=== PATIENT | male | born 1985 | race Hispanic/Latino ===

== ENCOUNTER 2017-04-02 13:36 | Emergency (ER) | payer SELFPAY ==
[~2017-04-02] VITALS: Ht 165.1 cm; Wt 55.0 kg
[~2017-04-02 13:36] MED LIST: AMOXICILLIN500 MG OR; BACTRIM DS1 TAB PO; BACTROBAN2 % EX; BENADRYL25 MG OR; CEPHALEXIN500 MG OR; COMPLERA PO; DELTASONE20 MG PO; DIFLUCAN100 MG PO; LORTAB 5 OR; LORTAB 7.5 OR; LORTAB 7.57.5 MG/TAB OR; LORTAB5 OR; MEDDOSEPAK OR; NAPROSYN500 MG OR; NO CURRENT MEDS; NO HOME MEDS; PENICILLN VK500 M1 OR; PENICILLN VK500 MG OR; PERCOCET 5/325M1 TAB OR; TORADOL PO; ULTRAM50 M1 PO; ZOFRAN ODT4 MG OR; [UNRECOGNIZED DRUG - REMARK]
[2017-04-02] MEDS ORDERED: DOXYCYC MONO100 M2 PO (14:11)
[2017-04-02 14:38] VITALS: BP 143/88
== END 2017-04-02 14:50 | disposition home or self-care (01) | DRG 395 ==
LOC: ED 13:36
PROC: 0D9P3ZZ Drainage of Rectum, Percutaneous Approach (ICD-10-PCS; principal; 2017-04-02)
DX: K64.5 Perianal venous thrombosis (principal); Z21 Asymptomatic human immunodeficiency virus [HIV] infection status

== ENCOUNTER 2022-03-10 21:12 | Emergency (ER) | payer BC ==
[~2022-03-10] VITALS: Ht 165.1 cm; Wt 52.0 kg
[2022-03-10] VITALS (8 sets, daily range): BP systolic 110–157; BP diastolic 73–102
[~2022-03-10 21:12] MED LIST changes: +DOXYCYC MONO100 M2 PO
[2022-03-10] MEDS ORDERED: SYMTUZA 800-1501 TAB (22:07)
[2022-03-10 22:37] LABS: HEMATOCRIT 47.9 % (39.0-50.0); HEMOGLOBIN 16.9 g/dl (14.0-18.0); IMMATURE GRANULOCYTES 0.1 % (0.0-5.0); MEAN CELL VOLUME 94.1 fL CALC (80.0-100.0); MEAN CORPUSCULAR HGB 33.2 pG CALC (26.0-32.0); MEAN CORPUSCULAR HGB CONC 35.3 g/dL CAL (32.0-36.0); NEUT# 4.56 thou/uL (1.82-7.42); RED BLOOD COUNT 5.09 mill/uL (4.70-6.10); RED CELL DISTRI WIDTH 12.1 % (11.5-15.5)
[2022-03-10 22:39] LABS: URINE BILIRUBIN - DIPSTICK NEGATIVE (NEGATIVE); URINE BLOOD DIPSTICK NEGATIVE (NEGATIVE); URINE COLOR YELLOW; URINE GLUCOSE - DIPSTICK NEGATIVE (NEGATIVE); URINE KETONE NEGATIVE (NEGATIVE); URINE LEUK ESTERASE NEGATIVE (NEGATIVE); URINE PROTEIN - DIPSTICK NEGATIVE (NEG-TRACE); URINE SPECIFIC GRAVITY 1.015; URINE UROBILINOGEN - DIPSTICK 0.2 E.U./dL (0.2)
[2022-03-10 22:40] LABS: URINE NITRITE - DIPSTICK NEGATIVE (Negative)
[2022-03-10 22:51] LABS: ALBUMIN 4.8 g/dL (3.2-5.0); ALKALINE PHOSPHATASE 85 u/l (38-126); AMYLASE 93 u/l (30-110); BUN 5 mg/dL (9-20); BUN/CREATININE RATIO 7 (12-20 (CALC)); CHLORIDE 105 mmol/l (95-108); CREATININE 0.7 mg/dL (0.7-1.3); GFR FOR AFR.AMER. > 60 ML/MIN (>=60 (CALC)); GFR OTHER RACES > 60 ML/MIN (>=60 (CALC)); LIPASE 158 u/l (23-300); POTASSIUM 3.9 mmol/l (3.5-5.1); SGOT/AST 93 u/l (17-59); SODIUM 141 mmol/l (137-146); TOTAL PROTEIN 9.6 g/dL (6.3-8.2)
[2022-03-10 23:01] LABS: ANION GAP 17 (6-22 (CALC)); BILIRUBIN, TOTAL 0.9 mg/dL (0.0-1.4); CARBON DIOXIDE 23 mmol/l (22-30)
[2022-03-11] VITALS: BP 110/78
[2022-03-11] MEDS ORDERED: PROMETHAZINE HY25 M1 PO (00:11)
[2022-03-11] MEDS ORDERED: DICYCLOMINE10 MG PO (00:11)
[2022-03-11 00:15] VITALS: BP 104/68
[2022-03-11 00:30] VITALS: BP 108/72
[2022-03-11 00:45] VITALS: BP 126/84
[2022-03-11 00:48] VITALS: BP 126/84
== END 2022-03-11 00:59 | disposition home or self-care (01) | DRG 392 ==
LOC: ED 21:12
PROVIDERS: Family Medicine
DX: R10.9 Unspecified abdominal pain (principal); Z20.822 Contact with and (suspected) exposure to COVID-19; Z21 Asymptomatic human immunodeficiency virus [HIV] infection status
CPT/HCPCS: Q9967

== ENCOUNTER 2022-06-27 20:13 | Emergency (ER) | payer BC ==
[2022-06-27] VITALS (11 sets, daily range): BP systolic 87–126; BP diastolic 55–64
[~2022-06-27] VITALS: Ht 165.1 cm; Wt 43.8 kg
[~2022-06-27 20:13] MED LIST changes: +DICYCLOMINE10 MG PO; +PROMETHAZINE HY25 M1 PO; +SYMTUZA 800-1501 TAB
[2022-06-27 20:57] LABS: BASO% 0.3 % (0-3); EOS% 0.1 % (0-8); IMMATURE GRANULOCYTES 0.3 % (0.0-5.0); LYMPH% 5.3 % (15-41); MEAN CORPUSCULAR HGB 31.1 pG CALC (26.0-32.0); MEAN CORPUSCULAR HGB CONC 34.6 g/dL CAL (32.0-36.0); MONO% 11.6 % (2-13); NEUT# 9.76 thou/uL (1.82-7.42); NEUT% 82.4 % (42-76); RED BLOOD COUNT 3.89 mill/uL (4.70-6.10); RED CELL DISTRI WIDTH 11.7 % (11.5-15.5)
[2022-06-27 20:58] LABS: HEMOGLOBIN 12.1 g/dl (14.0-18.0)
[2022-06-27 21:06] LABS: ALBUMIN 3.8 g/dL (3.2-5.0); ALKALINE PHOSPHATASE 94 u/l (38-126); ANION GAP 15 (6-22 (CALC)); BILIRUBIN, TOTAL 1.3 mg/dL (0.2-1.3); BUN 8 mg/dL (9-20); BUN/CREATININE RATIO 10 (12-20 (CALC)); CARBON DIOXIDE 23 mmol/l (22-30); CHLORIDE 97 mmol/l (95-108); CREATININE 0.8 mg/dL (0.7-1.3); GFR FOR AFR.AMER. > 60 ML/MIN (>=60 (CALC)); GFR OTHER RACES > 60 ML/MIN (>=60 (CALC)); LIPASE 586 u/l (23-300); POTASSIUM 3.1 mmol/l (3.5-5.1); SGOT/AST 59 u/l (17-59); SODIUM 132 mmol/l (137-146); TOTAL PROTEIN 7.6 g/dL (6.3-8.2)
[2022-06-27 22:23] LABS: URINE BILIRUBIN - DIPSTICK NEGATIVE (NEGATIVE); URINE BLOOD DIPSTICK TRACE-INTACT (NEGATIVE); URINE COLOR YELLOW; URINE GLUCOSE - DIPSTICK NEGATIVE (NEGATIVE); URINE KETONE NEGATIVE (NEGATIVE); URINE LEUK ESTERASE MODERATE (NEGATIVE); URINE NITRITE - DIPSTICK NEGATIVE (Negative); URINE PH 6.5 (4.5-8.0); URINE PROTEIN - DIPSTICK NEGATIVE (NEG-TRACE); URINE SPECIFIC GRAVITY <=1.005
[2022-06-27 22:37] LABS: URINE RBC 0-2 RBC/hpf (0-5); URINE WBC 50-100 WBC/hpf (0-5)
[2022-06-27 22:38] LABS: URINE BACTERIA FEW hpf; URINE SQUAMOUS EPITHELIAL CELL FEW EPI/hpf (0-FEW)
[2022-06-27] MEDS ORDERED: CITRATE OF MEGNESIA PO (22:48)
[2022-06-27] MEDS ORDERED: TAMSULOSIN0.4 MG PO (22:48)
[2022-06-27] MEDS ORDERED: TRAMADOL HCL50 MG PO (22:48)
[2022-06-27] MEDS ORDERED: MIRALAX17 GM PO (22:48)
[2022-06-27] MEDS ORDERED: CIPROFLOXACN500 MG PO (22:48)
[2022-06-27] MEDS ORDERED: POTASSIUM CHLO20 ME1 PO (22:49)
== END 2022-06-28 00:34 | disposition home or self-care (01) | DRG 392 ==
LOC: ED 20:13
PROVIDERS: Family Medicine
DX: K59.00 Constipation, unspecified (principal); N20.1 Calculus of ureter; N39.0 Urinary tract infection, site not specified; N23 Unspecified renal colic; Z20.822 Contact with and (suspected) exposure to COVID-19; Z21 Asymptomatic human immunodeficiency virus [HIV] infection status; Z86.19 Personal history of other infectious and parasitic diseases
CPT/HCPCS: Q9967

== ENCOUNTER 2022-07-02 01:17 | Emergency (ER) | payer BC ==
[2022-07-02] VITALS (14 sets, daily range): BP systolic 96–114; BP diastolic 60–73
[~2022-07-02] VITALS: Ht 165.1 cm; Wt 44.9 kg
[~2022-07-02 01:17] MED LIST changes: +CIPROFLOXACN500 MG PO; +CITRATE OF MEGNESIA PO; +MIRALAX17 GM PO; +POTASSIUM CHLO20 ME1 PO; +TAMSULOSIN0.4 MG PO; +TRAMADOL HCL50 MG PO
[2022-07-02 01:53] LABS: BASO% 0.3 % (0-3); EOS% 0.5 % (0-8); HEMATOCRIT 35.9 % (39.0-50.0); HEMOGLOBIN 12.3 g/dl (14.0-18.0); IMMATURE GRANULOCYTES 0.6 % (0.0-5.0); LYMPH% 8.6 % (15-41); MEAN CELL VOLUME 89.8 fL CALC (80.0-100.0); MEAN CORPUSCULAR HGB 30.8 pG CALC (26.0-32.0); MEAN CORPUSCULAR HGB CONC 34.3 g/dL CAL (32.0-36.0); MONO% 10.1 % (2-13); NEUT# 8.04 thou/uL (1.82-7.42); NEUT% 79.9 % (42-76); RED CELL DISTRI WIDTH 12.2 % (11.5-15.5)
[2022-07-02 02:04] LABS: ALBUMIN 3.7 g/dL (3.2-5.0); ALKALINE PHOSPHATASE 135 u/l (38-126); ANION GAP 13 (6-22 (CALC)); BILIRUBIN, TOTAL 0.6 mg/dL (0.2-1.3); BUN 7 mg/dL (9-20); BUN/CREATININE RATIO 11 (12-20 (CALC)); CARBON DIOXIDE 23 mmol/l (22-30); CHLORIDE 104 mmol/l (95-108); CREATININE 0.7 mg/dL (0.7-1.3); GFR FOR AFR.AMER. > 60 ML/MIN (>=60 (CALC)); GFR OTHER RACES > 60 ML/MIN (>=60 (CALC)); POTASSIUM 3.3 mmol/l (3.5-5.1); SGOT/AST 105 u/l (17-59); SODIUM 136 mmol/l (137-146)
[2022-07-02 02:13] LABS: URINE BILIRUBIN - DIPSTICK NEGATIVE (NEGATIVE); URINE BLOOD DIPSTICK LARGE (NEGATIVE); URINE COLOR YELLOW; URINE GLUCOSE - DIPSTICK NEGATIVE (NEGATIVE); URINE KETONE NEGATIVE (NEGATIVE); URINE LEUK ESTERASE TRACE (NEGATIVE); URINE NITRITE - DIPSTICK NEGATIVE (Negative); URINE PH 7.5 (4.5-8.0); URINE PROTEIN - DIPSTICK NEGATIVE (NEG-TRACE); URINE UROBILINOGEN - DIPSTICK >=8.0 E.U./dL (0.2)
[2022-07-02 02:18] LABS: URINE RBC 50-100 RBC/hpf (0-5)
[2022-07-02 02:19] LABS: URINE BACTERIA FEW hpf; URINE SQUAMOUS EPITHELIAL CELL FEW EPI/hpf (0-FEW)
[2022-07-02] MEDS ORDERED: ULTRAM50 MG PO (03:41)
[2022-07-02] MEDS ORDERED: CIPROFLOXACN500 MG PO (03:41)
== END 2022-07-02 04:33 | disposition home or self-care (01) | DRG 153 ==
LOC: ED 01:17
PROVIDERS: Emergency Medicine
DX: J06.9 Acute upper respiratory infection, unspecified (principal); R07.89 Other chest pain; N39.0 Urinary tract infection, site not specified; Z21 Asymptomatic human immunodeficiency virus [HIV] infection status; B19.20 Unspecified viral hepatitis C without hepatic coma; Z20.822 Contact with and (suspected) exposure to COVID-19
CPT/HCPCS: J1956

== ENCOUNTER 2022-07-08 18:06 | Emergency (ER) | payer BC ==
[~2022-07-08] VITALS: Ht 165.1 cm; Wt 44.0 kg
[~2022-07-08 18:06] MED LIST changes: +ULTRAM50 MG PO
[2022-07-08 19:23] VITALS: BP 115/85
[2022-07-08 19:30] VITALS: BP 112/76
[2022-07-08 20:15] LABS: BASO% 0.3 % (0-3); EOS% 0.9 % (0-8); HEMOGLOBIN 11.5 g/dl (14.0-18.0); IMMATURE GRANULOCYTES 0.9 % (0.0-5.0); LYMPH% 25.5 % (15-41); MEAN CELL VOLUME 91.4 fL CALC (80.0-100.0); MEAN CORPUSCULAR HGB CONC 32.9 g/dL CAL (32.0-36.0); MONO% 8.9 % (2-13); NEUT# 3.71 thou/uL (1.82-7.42); NEUT% 63.5 % (42-76); RED BLOOD COUNT 3.83 mill/uL (4.70-6.10); RED CELL DISTRI WIDTH 13.2 % (11.5-15.5)
[2022-07-08 20:31] LABS: ALBUMIN 3.8 g/dL (3.2-5.0); ALKALINE PHOSPHATASE 99 u/l (38-126); ANION GAP 9 (6-22 (CALC)); BILIRUBIN, TOTAL 0.4 mg/dL (0.2-1.3); BUN 9 mg/dL (9-20); BUN/CREATININE RATIO 14 (12-20 (CALC)); CARBON DIOXIDE 30 mmol/l (22-30); CHLORIDE 108 mmol/l (95-108); CREATININE 0.7 mg/dL (0.7-1.3); GFR FOR AFR.AMER. > 60 ML/MIN (>=60 (CALC)); GFR OTHER RACES > 60 ML/MIN (>=60 (CALC)); POTASSIUM 3.2 mmol/l (3.5-5.1); SGOT/AST 65 u/l (17-59); SODIUM 144 mmol/l (137-146); TOTAL PROTEIN 8.1 g/dL (6.3-8.2)
[2022-07-09 00:05] VITALS: BP 112/76
== END 2022-07-09 00:07 | disposition short-term general hospital (02) | DRG 694 ==
LOC: ED 18:06
PROVIDERS: Emergency Medicine
DX: N20.1 Calculus of ureter (principal); R64 Cachexia; Z21 Asymptomatic human immunodeficiency virus [HIV] infection status; B19.20 Unspecified viral hepatitis C without hepatic coma; Z79.899 Other long term (current) drug therapy

== ENCOUNTER 2022-07-15 00:51 | Emergency (ER) | payer BC ==
[~2022-07-15] VITALS: Ht 165.1 cm; Wt 48.0 kg
[2022-07-15 01:33] LABS: URINE BILIRUBIN - DIPSTICK NEGATIVE (NEGATIVE); URINE BLOOD DIPSTICK NEGATIVE (NEGATIVE); URINE COLOR YELLOW; URINE GLUCOSE - DIPSTICK NEGATIVE (NEGATIVE); URINE KETONE NEGATIVE (NEGATIVE); URINE LEUK ESTERASE NEGATIVE (NEGATIVE); URINE PROTEIN - DIPSTICK NEGATIVE (NEG-TRACE); URINE SPECIFIC GRAVITY 1.015
[2022-07-15 01:35] LABS: URINE NITRITE - DIPSTICK NEGATIVE (Negative)
[2022-07-15 02:04] LABS: BASO% 0.8 % (0-3); HEMATOCRIT 37.1 % (39.0-50.0); LYMPH% 18.1 % (15-41); MEAN CELL VOLUME 96.1 fL CALC (80.0-100.0); MEAN CORPUSCULAR HGB 31.1 pG CALC (26.0-32.0); MEAN CORPUSCULAR HGB CONC 32.3 g/dL CAL (32.0-36.0); MONO% 9.5 % (2-13); NEUT# 6.43 thou/uL (1.82-7.42); NEUT% 69.6 % (42-76); RED BLOOD COUNT 3.86 mill/uL (4.70-6.10); RED CELL DISTRI WIDTH 14.6 % (11.5-15.5)
[2022-07-15 02:13] LABS: ALBUMIN 4.2 g/dL (3.2-5.0); ALKALINE PHOSPHATASE 88 u/l (38-126); ANION GAP 11 (6-22 (CALC)); BILIRUBIN, TOTAL 0.4 mg/dL (0.2-1.3); BUN 10 mg/dL (9-20); BUN/CREATININE RATIO 12 (12-20 (CALC)); CARBON DIOXIDE 25 mmol/l (22-30); CHLORIDE 108 mmol/l (95-108); CREATININE 0.8 mg/dL (0.7-1.3); GFR FOR AFR.AMER. > 60 ML/MIN (>=60 (CALC)); GFR OTHER RACES > 60 ML/MIN (>=60 (CALC)); POTASSIUM 3.9 mmol/l (3.5-5.1); SGOT/AST 55 u/l (17-59); SODIUM 140 mmol/l (137-146); TOTAL PROTEIN 8.6 g/dL (6.3-8.2)
[2022-07-15 04:34] VITALS: BP 114/77
== END 2022-07-15 05:07 | disposition home or self-care (01) | DRG 694 ==
LOC: ED 00:51
PROVIDERS: Emergency Medicine
DX: N23 Unspecified renal colic (principal); B19.20 Unspecified viral hepatitis C without hepatic coma; Z21 Asymptomatic human immunodeficiency virus [HIV] infection status; Z79.899 Other long term (current) drug therapy; Z87.442 Personal history of urinary calculi